=== PATIENT | male | born 1955 | race Caucasian/White ===

== ENCOUNTER 2024-04-21 05:57 | Day surgery (SDC) | payer MEDICARE, BC ==
[2024-04-21] MEDS ORDERED: Lactated Ringers 1,000 ML IV ONE (06:16)
[2024-04-21] MEDS: Lactated Ringers 1,000 ML IV SCH (06:26)
[2024-04-21 06:43] VITALS: RESP 18; O2SAT 98
[2024-04-21] MEDS ORDERED: DIPRIVAN 200 MG/20 ML IV ONE (07:56)
[2024-04-21 09:03] VITALS: TEMP 97.8
[2024-04-21 09:15] VITALS: BP 145/89; PULSE 75
--- NOTE | 2024-04-21 09:41 | OP ---
SURGERY DATE/TIME: 04/21/2024 0810 PREOPERATIVE DIAGNOSIS: Positive fecal occult blood. POSTOPERATIVE DIAGNOSES: 1) Normal colon. 2) Diverticulosis. PROCEDURE: Colonoscopy. SURGEON: Michael Salgado M.D. ANESTHESIA: MAC. QUANTITATIVE BLOOD LOSS: None. SPECIMENS: None. DESCRIPTION OF PROCEDURE: After informed written consent was obtained, the patient was taken to the endoscopy suite. He was placed in left lateral decubitus position and anesthesia was titrated to desired level of consciousness. Digital rectal exam showed normal sphincter tone and no internal lesions. The scope was inserted into the rectum and sequentially the entire colonic mucosa was traversed. The level of cecum was reached and verified with direct visualization of the ileocecal valve. There were no mucosal abnormalities, no polyps or other lesions appreciable. He did have diverticulosis mostly confined to the sigmoid colon with no active bleeding or other suspicious lesions. Of note, the patient did have some bradycardia during entry of the scope with the heart rate down in the 40's. He reported a history of a pacemaker therefore I relayed this information to his planograph operator. Prior to withdrawal retroflexion was performed and showed no internal lesions. The scope was removed and the patient was transferred to the recovery room in excellent condition. He was hemodynamically stable throughout the entire procedure and tolerated well.
== END 2024-04-21 09:30 | disposition home or self-care (01) ==
LOC: SDC 05:57
PROVIDERS: ATTEND Family Medicine
DX: K57.30 Diverticulosis of large intestine without perforation or abscess without bleeding (principal); R19.5 Other fecal abnormalities; R00.1 Bradycardia, unspecified
CPT/HCPCS: 93005; J2704